=== PATIENT | female | born 1995 | race Two or more races ===

== ENCOUNTER 2025-10-17 13:17 | Emergency (ER) | payer OTHER ==
[~2025-10-17] VITALS: Ht 154.9 cm; Wt 55.3 kg
[2025-10-17] MEDS ORDERED: SODIUM CHLORIDE FOR INHALATION 1 VIAL.NEB IH ONE (16:30)
[2025-10-17] MEDS ORDERED: GUAIFENESIN 100 MG/5 ML BLIST.PACK PO ONE (16:30)
[2025-10-17] MEDS ORDERED: ACETAMINOPHEN 500 MG GEL..CAP PO ONE (16:30)
[2025-10-17 18:05] LABS: BASO % 0.4 % (0.1-1.2); EOS # 0.25 (0.04-0.54); EOS % 2.4 % (0.7-7.0); LYMPH # 1.35 (1.18-3.74); LYMPH % 13.1 % (19.3-53.1); MEAN PLATELET VOLUME 9.80 fl (9.4-12.4); MONO # 1.14 (0.24-0.82); MONO % 11.0 % (4.7-12.5); NEUT # 7.45 (1.56-6.13); NEUT % 72.0 % (34.0-71.1); RED CELL DISTRIBUTION WIDTH 13.7 % (11.6-14.4)
[2025-10-17 18:36] LABS: ALT/SGPT 20.0 U/L (12-78); AST/SGOT 15.0 U/L (15-37); BILIRUBIN TOTAL 0.48 mg/dL (0.3-1.2); BUN CREA RATIO 23.0 (7.0-25.0); CREATININE SERUM 0.35 mg/dL (0.55-1.02); GFR 220.15; GLOBULINA 3.3 G/DL (2.4-3.5); GLUCOSE FASTING 72.0 mg/dL (65-100); OSMOLALITY SERUM 274.0 MOSM/KG (275-295)
[2025-10-17 18:58] LABS: URINE APPEARANCE Clear; URINE BILIRRUBIN Negative (NEGATIVE); URINE BLOOD Negative; URINE COLOR Yellow; URINE GLUCOSE Negative (NEGATIVE); URINE KETONE 15 (NEGATIVE); URINE LEUKOCYTE Negative; URINE NITRATE Negative; URINE PROTEIN Negative (NEGATIVE); URINE UROBILINOGEN 1.0 E.U./dl
[2025-10-17 19:03] LABS: URINE EPITHELIAL CELLS 15.6 uL (0.0-38.8); URINE RBC 7.7 uL (0.0-20.8); URINE WBC 113.7 uL (0.0-23.2)
[2025-10-17 19:07] LABS: URINE CAST 0.42 uL (0.0-1.40)
[2025-10-17] MEDS ORDERED: FLONASE16 GM NASAL ×2 (20:07→20:10)
[2025-10-17] MEDS ORDERED: VANACOF DM LIQ240 ML PO (20:07)
== END 2025-10-17 20:48 | disposition home or self-care (01) ==
LOC: ER 13:18
DX: B34.9 Viral infection, unspecified (principal)